=== PATIENT | male | born 2000 | race Caucasian/White ===

== ENCOUNTER 2021-07-22 13:58 | Emergency (ER) | payer SELFPAY ==
[2021-07-22] MEDS ORDERED: Acetaminophen 325 MG Tab PO ONE (15:49)
--- NOTE | 2021-07-22 15:50 | EDM.PDOC ---
<Guillermina Tamayo V - Last Filed: 07/22/21 16:43> ED HPI GENERAL MEDICAL PROBLEM - General Chief Complaint: Respiratory Problem Stated Complaint: COUGH Time Seen by Provider: 07/22/21 15:39 - Related Data Allergies Allergy/AdvReac Type Severity Reaction Status Date / Time brompheniramine Allergy Severe Vomiting Verified 07/22/21 15:04 [From Dimetapp Cold-Allergy (PE)] chlorpheniramine Allergy Severe Vomiting Verified 07/22/21 15:05 [From Triaminic Cold and Cough] dextromethorphan Allergy Severe Vomiting Verified 07/22/21 15:05 [From Triaminic Cold and Cough] phenylephrine Allergy Severe Vomiting Verified 07/22/21 15:04 [From Dimetapp Cold-Allergy (PE)] pseudoephedrine Allergy Severe Vomiting Verified 07/22/21 15:05 [From Triaminic Cold and Cough] Home Meds: Home Meds . [No Known Home Meds] 07/22/21 [History] Course - Re-Assessments/Exams Free Text/Narrative Re-Assessment/Exam: 07/22/21 16:43 Patient's influenza screen and Covid are both negative for today's visit. Since the symptoms have been going on for 8 days, we will discharge patient home with general recommendations and have him retest in a few days if his symptoms do not seem to be getting better. Departure - Departure Time of Disposition: 16:44 Disposition: Home, Self-Care 01 Condition: Good Clinical Impression: Viral URI with cough - Discharge Information *PRESCRIPTION DRUG MONITORING PROGRAM REVIEWED*: No *COPY OF PRESCRIPTION DRUG MONITORING REPORT IN PATIENT NATHALIA: No Instructions: Upper Respiratory Infection, Adult, [id number] Referrals: PCP,None [Primary Care Provider] - Forms: ED Department Discharge Additional Instructions: You were evaluated in the ER today for your [id number] symptoms. Your COVID-19 and influenza test did come back negative, but sometimes these are false negatives. These Covid screens are only about 60% accurate; and it is common to test negative initially but then test positive a few days later. Due to this, we recommend that you try to isolate yourself away from others, and get retested for COVID-19 in about 3 or 4 days. There are multiple sites that can do this, there is a drive-through clinic by the [facility], there is a walk-in clinic and our Covid clinic that can help you with these. Continue all other medications as previously prescribed. Do not hesitate to return to the ER at any time if symptoms change or worsen. <Brandon Pena - Last Filed: 07/24/21 08:13> ED HPI GENERAL MEDICAL PROBLEM - General Source of Information: Reports: Patient History Limitations: Reports: No Limitations - History of Present Illness INITIAL COMMENTS - FREE TEXT/NARRATIVE: 21-year-old male presents the emergency department today with complaints of cough, shortness of breath, generalized body aches, headache and diarrhea. Patient states that the symptoms started 8 days ago. Patient states that the first couple of days that he had symptoms he also had a couple of episodes of vomiting however this has resolved. He states that he has developed diarrhea over the past couple of days. He states he has taken several different [id number] cough suppressants which have not helped his cough. He states he is taken Tylenol for his headache and this is not helped. He states he smokes about 5 cigarettes a day for the past 2 years as well as marijuana 3 times daily. He does not take any prescription medications. He does not have a primary care provider. Headache Pain Score (Numeric/FACES): 5 Generalized Pain Score (Numeric/FACES): 8 ED ROS GENERAL - Review of Systems Review Of Systems: Comprehensive ROS is negative, except as noted in HPI. ED EXAM, GENERAL - Physical Exam Exam: See Below Exam Limited By: No Limitations General Appearance: Alert, WD/WN, No Apparent Distress Ears: Normal External Exam, Hearing Grossly Normal Nose: Normal Inspection Throat/Mouth: Normal Inspection, Normal Lips, Normal Voice, No Airway Compromise Head: Atraumatic Neck: Normal Inspection, Supple Respiratory/Chest: No Respiratory Distress, Lungs Clear, Normal Breath Sounds, No Accessory Muscle Use, Chest Non-Tender Cardiovascular: Normal Peripheral Pulses, Regular Rate, Rhythm, No Murmur Peripheral Pulses: 2+: Radial (L), Radial (R) GI/Abdominal: Normal Bowel Sounds, Soft, Non-Tender, No Distention (Male) Exam: Deferred Rectal (Males) Exam: Deferred Back Exam: Normal Inspection Extremities: Normal Inspection Neurological: Alert, Oriented, Normal Cognition Psychiatric: Normal Affect, Normal Mood Skin Exam: Warm, Dry, Intact, Normal Color, No Rash Lymphatic: No Adenopathy Course - Vital Signs Text/Narrative:: As stated above, patient presents with Covid-like symptoms. The started approximately 8 days ago. Patient does have a fever in the emergency department of 100.0 but is otherwise hemodynamically stable with O2 saturations at 100% on room air. Physical exam is unremarkable. Patient will be tested for Covid. Will order Tylenol to be given for headache and low-grade fever. Last Recorded V/S: Last Vital Signs Temp 100.0 F 07/22/21 14:57 Pulse 85 07/22/21 14:57 Resp 20 07/22/21 14:57 BP 129/82 07/22/21 14:57 Pulse Ox 100 07/22/21 14:57 - Orders/Labs/Meds Labs: Laboratory Tests 07/22/21 Range/Units 15:43 Influenza Type A RNA Negative (NEGATIVE) Influenza Type B RNA Negative (NEGATIVE) SARS-CoV-2 RNA (KAIDEN) Negative (NEGATIVE) Meds: Medications Discontinued Medications Generic Name Dose Route Start Last Admin Trade Name Heaven PRN Reason Stop Dose Admin Acetaminophen 975 mg 07/22/21 15:49 07/22/21 16:05 Acetaminophen 325 Mg Tab PO 07/22/21 15:50 975 mg NOW ONE Administration
[2021-07-22 16:37] LABS: CORONAVIRUS COVID-19 NAA NEGATIVE (NEGATIVE)
== END 2021-07-22 17:13 | disposition home or self-care (01) ==
LOC: JD.ED 13:58
DX: J06.9 Acute upper respiratory infection, unspecified (principal); Z88.8 Allergy status to other drugs, medicaments and biological substances; Z20.822 Contact with and (suspected) exposure to COVID-19
CPT/HCPCS: 0240U; 99283; A9270

== ENCOUNTER 2021-08-07 02:39 | Emergency (ER) | payer SELFPAY ==
--- NOTE | 2021-08-07 03:38 | EDM.PDOC ---
ED HPI GENERAL MEDICAL PROBLEM - General Chief Complaint: ENT Problem Stated Complaint: TOOTHACHE Time Seen by Provider: 08/07/21 03:36 - History of Present Illness INITIAL COMMENTS - FREE TEXT/NARRATIVE: 21-year-old male presents the emergency room with toothache. This is been going on for the last several days progressively getting worse it is caused him to miss a day or 2 from work. He is not aware of any fevers or chills but this started out as a simple tooth ache and now it seems to be extending into his jaw. His pain is localized to the left side. He has not noticed any facial swelling yet. Patient has not seen a dentist in years. He is aware that he has poor teeth. Left Upper Tooth/Teeth Pain Score (Numeric/FACES): 8 - Related Data Allergies Allergy/AdvReac Type Severity Reaction Status Date / Time brompheniramine Allergy Severe Vomiting Verified 08/07/21 02:55 [From Dimetapp Cold-Allergy (PE)] chlorpheniramine Allergy Severe Vomiting Verified 08/07/21 02:55 [From Triaminic Cold and Cough] dextromethorphan Allergy Severe Vomiting Verified 08/07/21 02:55 [From Triaminic Cold and Cough] phenylephrine Allergy Severe Vomiting Verified 08/07/21 02:55 [From Dimetapp Cold-Allergy (PE)] pseudoephedrine Allergy Severe Vomiting Verified 08/07/21 02:55 [From Triaminic Cold and Cough] Home Meds: Home Meds Amoxicillin 500 mg PO TID #30 tab 08/07/21 [Rx] Past Medical History - Past Health History Medical/Surgical History: Denies Medical/Surgical History Respiratory History: Reports: Asthma Musculoskeletal History: Reports: Fracture Social & Family History - Tobacco Use Tobacco Use Status *Q: Never Tobacco User - Caffeine Use Caffeine Use: Reports: Coffee, Energy Drinks, Soda - Recreational Drug Use Recreational Drug Use: Yes Drug Use in Last 12 Months: Yes Recreational Drug Type: Reports: Marijuana/Hashish Recreational Drug Use Frequency: Daily ED ROS GENERAL - Review of Systems Review Of Systems: See Below Constitutional: Reports: No Symptoms HEENT: Reports: Dental Pain. Denies: Rhinitis, Throat Pain, Throat Swelling Respiratory: Reports: No Symptoms Cardiovascular: Reports: No Symptoms Endocrine: Reports: No Symptoms GI/Abdominal: Reports: No Symptoms : Reports: No Symptoms Musculoskeletal: Reports: No Symptoms ED EXAM, GENERAL - Physical Exam Exam: See Below Exam Limited By: No Limitations General Appearance: Alert, No Apparent Distress Eye Exam: Bilateral Eye: Normal Inspection Ears: Normal External Exam, Normal Canal, Hearing Grossly Normal, Normal TMs Nose: Normal Inspection, Normal Mucosa, No Blood Throat/Mouth: Normal Oropharynx, Normal Voice, No Airway Compromise, Other (He has poor quality teeth he has one that is severely fractured his lowermost rear molar and the one just in front is eroded down below the gumline. He has had significant erythema around both of these. This is the tender area.) Head: Atraumatic, Normocephalic Neck: Normal Inspection, Supple, Non-Tender, Full Range of Motion. No: Lymphadenopathy (L), Lymphadenopathy (R) Respiratory/Chest: No Respiratory Distress, Lungs Clear, Normal Breath Sounds Cardiovascular: Regular Rate, Rhythm, No Edema, No Murmur Course - Vital Signs Last Recorded V/S: Last Vital Signs Temp 36.8 C 08/07/21 02:55 Pulse 91 08/07/21 02:55 Resp 14 08/07/21 02:55 BP 162/106 H 08/07/21 02:55 Pulse Ox 97 08/07/21 02:55 Departure - Departure Time of Disposition: 04:11 Disposition: Home, Self-Care 01 Clinical Impression: Dental caries - Discharge Information Referrals: PCP,None [Primary Care Provider] - Forms: ED Department Discharge Additional Instructions: Return to the emergency room with any questions problems or worsening symptoms however. You must see a dentist to get this fixed. Follow-up with the dentist as soon as you can. You have been started on amoxicillin take 1 3 times a day until all gone. This will not fix the condition you need to have dental work done. Sepsis Event Note (ED) - Evaluation Sepsis Screening Result: No Definite Risk - Focused Exam Vital Signs: Vital Signs Temp Pulse Resp BP Pulse Ox 08/07/21 02:55 36.8 C 91 14 162/106 H 97
[2021-08-07] MEDS ORDERED: Amoxicillin 500 MG Cap PO ONE (04:03)
== END 2021-08-07 04:30 | disposition home or self-care (01) ==
LOC: JD.ED 02:39
DX: K02.9 Dental caries, unspecified (principal); Z88.8 Allergy status to other drugs, medicaments and biological substances
CPT/HCPCS: 99282; A9270